=== PATIENT | male | born 1980 | race African-American/Black ===

== ENCOUNTER 2024-02-29 06:25 | Observation (INO) | payer SELFPAY ==
[2024-02-29] MEDS ORDERED: levETIRAcetam 500 MG (5 mL) VIAL ONE (06:43)
[2024-02-29] MEDS ORDERED: Lorazepam 2 MG/ML VIAL ONE (07:16)
[2024-02-29 07:30] LABS: #Basophils 0.04 10x3/uL (0.0-0.2); #Eosinophils Less than 0.03 10x3/uL (0.0-0.7); %Basophils 0.4 % (0.0-1.0); %Eosinophils 0.2 % (0.0-10.0); %Lymphocytes 13.9 % (21.0-51.0); %Monocytes 11.2 % (0.0-10.0); %Neutrophils 73.9 % (42.0-75.0); Hematocrit 37.4 % (42.0-52.0); Hemoglobin 12.3 g/dL (14.0-18.0); Mean Corpuscular HGB CONC 32.9 g/dL (32.0-36.0); Mean Corpuscular Volume 103.3 fL (78.0-98.0); Mean Platelet Volume 8.8 fL (7.4-10.4); Platelet Count 254 10x3/uL (130-400); RBC Distribution Width 13.4 % (11.5-14.5); Red Blood Cell (RBC) Count 3.62 mill/uL (4.70-6.10)
[2024-02-29 07:40] LABS: Dilantin Less than 1.8 ug/mL (10.0-20.0)
[2024-02-29 07:42] LABS: ALT (SGPT) 6 U/L (8-55); AST (SGOT) 14 U/L (5-34); Acetaminophen Less than 10 mcg/mL (Less than 10); Albumin 3.7 g/dL (3.5-5.0); Alcohol Less than 10.0 mg/dL (Less than 10); Alkaline Phosphatase 47 U/L (40-110); Anion Gap 16 mmol/L (10-20); BUN (Urea Nitrogen) 12 mg/dL (8.9-20.6); Bilirubin, Total 0.4 mg/dL (0.2-1.2); Calc. Creatinine Clearance 0 mL/min (70-130); Calcium 8.9 mg/dL (7.8-10.44); Carbon Dioxide 22 mmol/L (22-29); Chloride 104 mmol/L (98-107); Estimated GFR 110; Globulin 3.4 g/dL (2.4-3.5); Glucose 115 mg/dL (70-105); Potassium 3.3 mmol/L (3.5-5.1); Protein, Total 7.1 g/dL (6.0-8.3); Salicylate Less than 8.0 mg/dL (Less than 8.0); Sodium 139 mmol/L (136-145)
[2024-02-29 10:01] LABS: Bacteria/HPF None Seen HPF (None Seen); Bilirubin Negative (Negative); Blood, Urine Trace (Negative); CAUTI Indications for Culture Acute Hematuria; Clarity Clear (Clear); Glucose, Urine (Dipstick) Normal (Negative); Ketone, Urine Negative (Negative); Leukocyte Negative Leu/uL (Negative); Nitrite Negative (Negative); Protein, Urine (Dipstick) 10 mg/dL (Neg-Trace); RBC/HPF 0-3 HPF (0-3); Specific Gravity, Urine 1.019 (1.002-1.036); Squamous Epithelial 0-3 HPF (0-3); Urobilinogen Normal mg/dL (Less than 2)
[2024-02-29 10:03] LABS: Amphetamine Not Detected (NotDetected); Barbiturates Screen Not Detected (NotDetected); Benzodiazepine Screen Detected (NotDetected); Cocaine Metabolite Screen Not Detected (NotDetected); Methadone Not Detected (NotDetected); Methamphetamine Not Detected (NotDetected); Opiate Screen Not Detected (NotDetected); Oxycodone Screen Not Detected (NotDetected); Phencyclidine (PCP) Not Detected (NotDetected); THC/Cannabinoid Screen Detected (NotDetected); Tricyclic Screen Not Detected (NotDetected)
[2024-02-29 10:09] LABS: Urine Culture Reflex No No
[2024-02-29] MEDS ORDERED: Acetaminophen 325 MG TAB PO PRN (10:15)
[2024-02-29] MEDS ORDERED: Ondansetron ODT 4 MG TAB SL PRN (10:15)
[2024-02-29] MEDS ORDERED: Ondansetron PF 4 MG/2 ML Vial IVP PRN ×2 (10:15→11:18)
[2024-02-29 10:44] VITALS: BMI 26.6
[2024-02-29] MEDS: Valproate Sodium 1,500 MG in Sodium Chloride 0.9% 100 ML IVPB SCH (11:04)
[2024-02-29] MEDS ORDERED: clonazePAM 0.5 MG TAB PO PRN (11:18)
[2024-02-29] MEDS ORDERED: Lorazepam 2 MG/ML VIAL SLOW IVP PRN (11:18)
[2024-02-29] MEDS ORDERED: Nicotine 14 MG PATCH TD PRN (11:25)
[2024-02-29] MEDS: Lactated Ringer's 500 ML IV SCH (13:39)
[2024-02-29] MEDS: lamoTRIgine 25 MG TAB PO SCH ×2 (15:24→20:16)
[2024-02-29] MEDS: lamoTRIgine 100 MG TAB PO SCH ×2 (15:24→20:16)
[2024-02-29] MEDS: Acetaminophen 325 MG TAB PO PRN (18:00)
[2024-02-29] MEDS ORDERED: Ibuprofen 100 MG/5 ML UDCUP PO PRN (18:22)
[2024-02-29] MEDS ORDERED: oxyCODONE 5 MG TAB PO PRN (18:22)
[2024-02-29] MEDS: Lisinopril 20 MG TAB PO SCH (20:15)
[2024-02-29] MEDS: MAGIC MOUTH WASH W/NYSTATIN SUSP 10 ML UDCUP SSP SCH (20:16)
[2024-02-29] MEDS: Amlodipine 10 MG TAB PO SCH (20:16)
[2024-02-29] MEDS: Valproic Acid 250 MG CAP PO SCH (20:21)
[2024-02-29] MEDS ORDERED: Valproic Acid 250 MG CAP PO SCH (21:00)
[2024-03-01 05:01] LABS: #Basophils 0.03 10x3/uL (0.0-0.2); #Eosinophils Less than 0.03 10x3/uL (0.0-0.7); %Basophils 0.3 % (0.0-1.0); %Eosinophils 0.1 % (0.0-10.0); %Lymphocytes 30.8 % (21.0-51.0); %Monocytes 11.5 % (0.0-10.0); Hematocrit 35.8 % (42.0-52.0); Hemoglobin 11.8 g/dL (14.0-18.0); Mean Corpuscular Hemoglobin 33.1 pg (27.0-31.0); Mean Corpuscular Volume 100.6 fL (78.0-98.0); Platelet Count 242 10x3/uL (130-400); RBC Distribution Width 13.1 % (11.5-14.5); Red Blood Cell (RBC) Count 3.56 mill/uL (4.70-6.10)
[2024-03-01 05:48] LABS: Anion Gap 14 mmol/L (10-20); BUN (Urea Nitrogen) 9 mg/dL (8.9-20.6); Calc. Creatinine Clearance 146 mL/min (70-130); Calcium 8.8 mg/dL (7.8-10.44); Carbon Dioxide 25 mmol/L (22-29); Chloride 107 mmol/L (98-107); Estimated GFR 110; Glucose 84 mg/dL (70-105); Potassium 3.3 mmol/L (3.5-5.1); Sodium 143 mmol/L (136-145)
[2024-03-01] MEDS ORDERED: Electrolyte Replacement Protocol FS PRN (07:30)
[2024-03-01] MEDS ORDERED: Electrolyte Replacement Protocol 1 EACH FS SCH (07:30)
[2024-03-01] MEDS: lamoTRIgine 25 MG TAB PO SCH (08:50)
[2024-03-01] MEDS: lamoTRIgine 100 MG TAB PO SCH (08:50)
[2024-03-01] MEDS: Potassium Chloride 20 MEQ TAB PO SCH ×2 (08:50→20:38)
[2024-03-01] MEDS: FLU (Fluarix Triv) TS24-25(6MOS UP)/PF 45 MCG/0.5 ML Syringe IM ONE (08:51)
[2024-03-01] MEDS: Valproic Acid 250 MG CAP PO SCH (08:51)
[2024-03-01] MEDS: Divalproex Sodium 500 MG ER.TAB PO SCH ×2 (09:27→21:11)
[2024-03-01] MEDS: HYDROcodone/Acetaminophen 5/325 mg Tablet PO SCH (10:33)
[2024-03-01 14:18] LABS: Potassium 3.4 mmol/L (3.5-5.1)
[2024-03-01] MEDS: Ibuprofen 600 MG TAB PO PRN (17:38)
[2024-03-01 23:08] VITALS: TEMP 98.5
[2024-03-02] MEDS: HYDROcodone/Acetaminophen 5/325 mg Tablet PO PRN (03:32)
[2024-03-02 04:12] LABS: Anion Gap 14 mmol/L (10-20); BUN (Urea Nitrogen) 10 mg/dL (8.9-20.6); Calc. Creatinine Clearance 149 mL/min (70-130); Carbon Dioxide 23 mmol/L (22-29); Chloride 107 mmol/L (98-107); Estimated GFR 111; Glucose 90 mg/dL (70-105); Magnesium 2.1 mg/dL (1.6-2.6); Potassium 3.8 mmol/L (3.5-5.1); Sodium 140 mmol/L (136-145)
[2024-03-02 09:37] VITALS: BP 155/91
== END 2024-03-02 11:26 | disposition home or self-care (01) ==
LOC: ERS 06:25 → ERHOLD 09:51 → 2SE 16:07
PROVIDERS: ADMIT Family Medicine; ATTEND Family Medicine
DX: G40.909 Epilepsy, unspecified, not intractable, without status epilepticus (principal); I10 Essential (primary) hypertension; F17.200 Nicotine dependence, unspecified, uncomplicated; F12.20 Cannabis dependence, uncomplicated; Z79.899 Other long term (current) drug therapy
CPT/HCPCS: 36415; 36416; 70450; 71045; 80048; 80053; 80164; 80177; 80185; 80306; 80307; 81001; 83735; 84146; 85025; 93005; 96365; 96366; 96368; 96375; G0378; J1953; J2060; J7120